=== PATIENT | female | born 1965 | race Caucasian/White ===

== ENCOUNTER 2019-01-19 09:04 | Emergency (ER) | payer OTHER ==
[2019-01-19] MEDS ORDERED: OXYCODONE-ACETAMINOPHEN 5-325 MG TABLET PO ONE (10:52)
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
[2019-01-19 11:10] VITALS: BP 160/90
== END 2019-01-19 11:07 | disposition home or self-care (01) ==
LOC: ER 09:04
DX: M25.512 Pain in left shoulder (principal); M79.602 Pain in left arm; V43.52XA Car driver injured in collision with other type car in traffic accident, initial encounter; F17.210 Nicotine dependence, cigarettes, uncomplicated
CPT/HCPCS: 99283